=== PATIENT | male | born 1995 | race Native Hawaiian/Other Pacific Islander ===

== ENCOUNTER 2019-05-29 12:01 | Emergency (ER) | payer OTHER ==
[~2019-05-29] VITALS: Ht 182.9 cm; Wt 74.8 kg
[2019-05-29 12:05] VITALS: TEMP 97.8
[2019-05-29 12:41] LABS: PLATELET COUNT 194 K/uL (142-355)
[2019-05-29 12:54] LABS: POTASSIUM 4.1 mmol/L (3.6-5.2)
[2019-05-29 14:54] VITALS: BP 110/74
== END 2019-05-29 14:54 | disposition home or self-care (01) ==
LOC: ED 12:01
PROVIDERS: Family Medicine
DX: S50.02XS Contusion of left elbow, sequela (principal); X58.XXXS Exposure to other specified factors, sequela; L02.414 Cutaneous abscess of left upper limb
CPT/HCPCS: 80053; 85027; 99283